=== PATIENT | female | born 1970 | race Caucasian/White ===

== ENCOUNTER → 2021-10-29 | Day surgery (SDC) | payer BC ==
[2021-10-24 10:10] VITALS: BMI 28.4
[2021-10-29 08:50] VITALS: TEMP 97.1
[2021-10-29 09:28] VITALS: BP 99/63; PULSE 61; RESP 18
== END | disposition home or self-care (01) ==
LOC: JASU-ENDO 04:19
PROVIDERS: ATTEND Internal Medicine Gastroenterology
PROC: 0DJD8ZZ Inspection of Lower Intestinal Tract, Via Natural or Artificial Opening Endoscopic (ICD-10-PCS; principal; 2021-10-29 08:00)
DX: Z12.11 Encounter for screening for malignant neoplasm of colon (principal); Z83.71 Family history of colonic polyps
CPT/HCPCS: 81025